=== PATIENT | female | born 1965 | race Caucasian/White ===

== ENCOUNTER → 2017-04-10 | Outpatient (CLI) | payer BC ==
[~2017-04-10] MED LIST: ASPI81TA2 PO; BECL8.7A5 INH; DULO30CA2 PO; HYDR-3989 PO; LABE100T PO; LEVO50TA4 PO; LORA10TA62 PO; LOSA50TA2 PO; METF500T4 PO
== END ==
LOC: WC.BC 13:35
DX: Z12.31 Encounter for screening mammogram for malignant neoplasm of breast (principal)
CPT/HCPCS: 77063; G0202